=== PATIENT | female | born 1950 | race Caucasian/White ===

== ENCOUNTER 2018-01-06 09:45 | Emergency (ER) | payer BC, MEDICARE ==
--- NOTE | 2018-01-06 10:38 | Emergency Department Record ---
History of Present Illness - General Chief complaint: Eye Problem Stated complaint: PAIN BETHIND R EYE/SHAKEY/CHEST TIGHTNESS Time Seen by Provider: 01/06/18 10:10 Source: Patient Mode of Arrival: Ambulatory Limitations: No limitations Travel/Exposure to [facility] [place] Within 21 Days of Symptoms: No - History of Present Illness Initial comments: The patient is here due to multiple complaints. She has been having tremors and shaking for 6 months which has been getting gradually worse and today it was very bad. She did take 2 Tramadol this AM and now is feeling better. She also has been having a mild ALVARADO behind the R eye but that is almost gone now. The patient did see her PCP a month ago for the tremors and was started an a medicine but stopped it due to it making her nauseated. She denies any CP, SOB, SIMONA, sweating or AP. The patient did just miss a recent appointment with her PCP due to forgetting to put it on her calender. Onset/Timin -: Week(s) Onset Description: Gradual Location: Right eye Place: Home If Injury: None Severity scale (1-10): 7 Consistency: Constant Treatments Prior to Arrival: None - Related Data Home Medications Medication Instructions Recorded Confirmed Last Taken Cholecalciferol (Vitamin D3) 2,000 unit PO DAILY 01/06/18 01/06/18 Unknown [Vitamin D3] Losartan Potassium 100 mg PO DAILY 01/06/18 01/06/18 Unknown Allergies Allergy/AdvReac Type Severity Reaction Status Date / Time penicillin V Allergy Severe SWELLING Unverified 01/20/16 12:24 OF THE LIPS Sulfa (Sulfonamide Allergy Severe SWELLING Unverified 01/20/16 12:24 Antibiotics) OF THE LIPS adhesive tape Allergy Intermediate SKIN Unverified 01/20/16 12:24 IRRITATION Travel Screening - Travel/Exposure Within Last 30 Days Have you traveled within the last 30 days?: No Review of Systems Constitutional: Denies: Chills, Fever Eyes: Denies: Eye discharge ENT: Denies: Congestion Respiratory: Denies: Cough, Dyspnea Cardiovascular: Denies: Chest pain Endocrine: Reports: Fatigue Gastrointestinal: Denies: Abdominal pain Genitourinary: Denies: Dysuria Musculoskeletal: Denies: Back pain Past Medical History - SOCIAL HISTORY Smoking Status: Former smoker Alcohol Use: None Drug Use: None - RESPIRATORY Hx Respiratory Disorders: Yes Hx COPD: Yes - CARDIOVASCULAR Hx Cardio Disorders: Yes Hx Hypertension: Yes - NEURO Hx Neuro Disorders: No - GI Hx GI Disorders: No - Hx Genitourinary Disorders: No - ENDOCRINE Hx Endocrine Disorders: No - MUSCULOSKELETAL Hx Musculoskeletal Disorders: No - PSYCH Hx Psych Problems: Yes Hx Anxiety: Yes Hx Depression: Yes - HEMATOLOGY/ONCOLOGY Hx Hematology/Oncology Disorders: Yes Hx Cancer: Yes (breast) Hx Chemotherapy: No Hx Radiation Therapy: No Family Medical History Any Significant Family History?: No Physical Exam - General General Appearance: Alert, Oriented x3, Cooperative, No acute distress - Head Head exam: Atraumatic, Normocephalic, Normal inspection - Eye Eye exam: Normal appearance, PERRL, EOMI - ENT Throat exam: Normal inspection. negative: Tonsillar erythema, Tonsillar exudate - Neck Neck exam: Normal inspection, Full ROM. negative: Tenderness - Respiratory Respiratory exam: Normal lung sounds bilaterally. negative: Respiratory distress - Cardiovascular Cardiovascular Exam: Regular rate, Normal rhythm, Normal heart sounds. negative : Diastolic murmur, Systolic murmur - GI/Abdominal GI/Abdominal exam: Soft, Normal bowel sounds. negative: Tenderness - Extremities Extremities exam: Normal inspection, Full ROM, Normal capillary refill. negative: Calf tenderness, Pedal edema, Tenderness - Neurological Neurological exam: Alert, Normal gait, Oriented X3, Other (The patient does have a mild intention tremor to both upper extremities but that is chronic. ). negative: Abnormal gait, Altered, Motor sensory deficit - Psychiatric Psychiatric exam: Anxious Course Vital Signs 01/06/18 10:07 Temperature 98.2 F Pulse Rate [ 80 Pulse Ox Probe] Respiratory 20 Rate Blood Pressure 167/81 [Left Arm] Pulse Ox 97 - Reevaluation(s) Reevaluation #1: The patient is doing very well at this time. She is resting comfortably with less shaking. Her ALVARADO is much better also and now is back to her normal chronic headache level. The patient is able to get up and walk normally with good balance and no ataxia. I did discuss the test results and the fact they do not point to any specific cause for the shaking. She is to continue her home medicines and see her PCP this week as planned. 01/06/18 12:10 Medical Decision Making - Data Complexity MDM Data: Labs Ordered and/or Reviewed, X-Ray Ordered and/or Reviewed, EKG Ordered and/or Reviewed - Lab Data Result diagrams: 01/06/18 11:15 01/06/18 11:15 - EKG Data -: EKG Interpreted by Me EKG: No Acute Changes - Radiology Data Radiology results: Report reviewed (Head CT: Neg CXR: No acute changes.) Disposition Disposition: Discharge Clinical Impression: Tremors of nervous system Disposition: Home, Self-Care Condition: (2) Stable Instructions: Tremors (ED) Additional Instructions: Please continue your regular medicines and use Tylenol for any headache. Please see your family doctor for recheck next week as planned. Return to the ER for any worsening symptoms. Forms: Patient Portal Access Time of Disposition: 12:12 Quality - Quality Measures Quality Measures: N/A - Blood Pressure Screening View Details: Yes Does Patient Have Any of the Following: Active Dx of HTN Blood Pressure Classification: Hypertensive Reading Systolic Measurement: 144 Diastolic Measurement: 77 Screening for High Blood Pressure: Patient Exclusion, Hx of HTN [G9744]
[2018-01-06 11:21] LABS: BASO % 0.5 % (0-6); EOS % 1.7 % (0-6); GRAN % 57.4 % (47-80); HEMOGLOBIN 13.4 gm/dl (11.6-16.0); LYMPH % 30.8 % (16-45); MEAN CELL VOLUME 80.4 fl (81-97); MEAN CORPUSCULAR HGB CONC 31.2 g/dl (32-36); MEAN PLATELET VOLUME 9.2 fl (7.4-10.4); MONO % 9.6 % (0-9); PLATELET COUNT 340 K/uL (130-400); RED BLOOD COUNT 5.35 M/uL (3.80-5.40); RED CELL DISTRIBUTION WIDTH 17.5 % (11.5-14.5); WHITE BLOOD COUNT W/O DIFF 5.7 K/uL (4.2-12.2)
[2018-01-06 11:30] LABS: BLOOD UREA NITROGEN 14 mg/dL (8-23); CREATININE 0.8 mg/dL (0.5-0.9); EST GLOMERULAR FILTRATION RATE > 60 mL/min
[2018-01-06 11:33] LABS: GLUCOSE,RANDOM 123 mg/dL (74-109)
[2018-01-06 11:34] LABS: PARTIAL THROMBOPLASTIN TIME 32.6 SECONDS (24.5-39.1); PROTHROMBIN TIME (PATIENT) 10.6 SECONDS (9.5-12.1)
[2018-01-06 11:36] LABS: CREATINE PHOSPHOKINASE 128 U/L (26-192)
[2018-01-06 11:38] LABS: CKMB 3.6 ng/mL (<3.77)
--- NOTE | 2018-01-08 10:20 | CT SCAN REPORT ---
EXAM: CT SCAN OF THE BRAIN WITHOUT CONTRAST HISTORY: LEFT SIDED HEADACHE. TECHNIQUE: Standard CT imaging of the brain was performed in the axial plane without contrast. Additional coronal and sagittal reformatted images were also performed. Comparison: 12/09/11. FINDINGS: The ventricles and subarachnoid spaces are normal. There is no mass , mass effect, intracranial hemorrhage, visible acute infarct, or abnormal extraaxial fluid. The skull is intact. The orbits, sinuses, and mastoids are normal. IMPRESSION: NO ACUTE INTRACRANIAL ABNORMALITY. JOB NUMBER: [id number] [facility]
--- NOTE | 2018-01-08 10:42 | RADIOLOGY REPORT ---
EXAM: CHEST, TWO VIEWS HISTORY: DIFFICULTY BREATHING. PREVIOUS HISTORY OF RIGHT BREAST CANCER STATUS POST LUMPECTOMY. TECHNIQUE: PA and lateral upright views of the chest were obtained. Comparison: None. FINDINGS: The heart, mediastinum, and pulmonary vasculature are normal. The lungs are clear. There is no pneumothorax or effusion. Dystrophic calcifications are present within the right breast consistent with the history of previous lumpectomy. There is an old healed fracture involving the anterior aspect of the right ninth rib. No acute osseous abnormalities are identified. IMPRESSION: 1. NO ACUTE CHEST PATHOLOGY. 2. POST SURGICAL CHANGES WITHIN THE RIGHT BREAST. JOB NUMBER: [id number] [facility]
== END 2018-01-06 12:32 | disposition home or self-care (01) ==
LOC: ER 09:45
DX: G52.2 Disorders of vagus nerve (principal); R51 Headache; J44.9 Chronic obstructive pulmonary disease, unspecified; I10 Essential (primary) hypertension
CPT/HCPCS: 70450; 71046; 80048; 82550; 82553; 84484; 85025; 85610; 85730; 93005; 93010; 99284

== ENCOUNTER 2018-04-26 07:39 | Day surgery (SDC) | payer BC, MEDICARE ==
[2018-04-26] MEDS ORDERED: PROPOFOL 10 MG/ML VIAL IV ONE (07:40)
[2018-04-26] MEDS ORDERED: LIDOCAINE 2% MDV (20MG/ML) 20ML VIAL IV ONE (07:40)
--- NOTE | 2018-04-27 08:41 | Operative Note ---
DATE OF SURGERY: OPERATION: ESOPHAGOGASTRODUODENOSCOPY. PREOPERATIVE DIAGNOSIS: Intractable heartburn. POSTOPERATIVE DIAGNOSES: 1. Mildly irregular GE junction. 2. Gastric polyps. PROCEDURE: After informed consent was obtained from the patient, she was placed in the left lateral decubitus position in the endoscopy suite, sedated and monitored by the department of anesthesia. A well-lubricated [id number] gastroscope was placed in the posterior oropharynx and under direct visualization passed to the proximal esophagus. The endoscope was advanced through the proximal, mid, and distal esophagus. The GE junction was mildly irregular. No ulcers, erosions, strictures, varices, or mass lesions were seen. The remainder of the esophagus appeared normal. The gastric body and antrum demonstrated normal distensibility, normal rugal folds. There were several gastric polyps in the body as well as with inverted view, there were noted to be polyps of the fundus. No biopsies were obtained, as the patient took her Eliquis yesterday. No concerning lesions, however, were noted in the gastric lumen or in the esophagus. The duodenal bulb and sweep were unremarkable endoscopically. Once again J-turn views of the proximal stomach revealed multiple gastric polyps. These appeared to be [id number] in size and appeared unremarkable otherwise. The endoscope was straightened and removed from the patient with no new findings noted. RECOMMENDATIONS: I would suggest the patient try pantoprazole 40 mg once daily. It seems that she had some abdominal side effects from her Dexilant. Therefore, I would not want her to try Prevacid. In the past, she did not seem to respond to Prilosec. As always, thank you for allowing me to participate in the healthcare of your patients. CC: DO LORENZO Walton
== END 2018-04-26 09:06 | disposition home or self-care (01) ==
LOC: HOP 07:39
PROVIDERS: ATTEND Internal Medicine Gastroenterology
DX: R12 Heartburn (principal); K31.9 Disease of stomach and duodenum, unspecified; K31.7 Polyp of stomach and duodenum; I10 Essential (primary) hypertension; K21.9 Gastro-esophageal reflux disease without esophagitis; R60.9 Edema, unspecified; F32.9 Major depressive disorder, single episode, unspecified; F41.9 Anxiety disorder, unspecified; I82.409 Acute embolism and thrombosis of unspecified deep veins of unspecified lower extremity